=== PATIENT | male | born 1970 | race Caucasian/White ===

== ENCOUNTER 2021-02-17 19:36 | Emergency (ER) | payer OTHER ==
[2021-02-17 19:57] VITALS: BP 112/72; PULSE 85; TEMP 98.5; BMI 41.8
[2021-02-17] MEDS ORDERED: LIDOCAINE HCL 1%, 10 MG/ML (20ML VIAL) ONE (21:07)
== END 2021-02-17 22:18 | disposition home or self-care (01) ==
LOC: JERFT 19:36
PROC: 0HQCXZZ Repair Left Upper Arm Skin, External Approach (ICD-10-PCS; principal; 2021-02-17)
DX: S51.812A Laceration without foreign body of left forearm, initial encounter (principal)
CPT/HCPCS: 73060-TC-LT-FY; 73090-TC-LT-FY; 99284-25

== ENCOUNTER 2021-02-25 13:40 | Emergency (ER) | payer OTHER ==
[2021-02-25 14:04] VITALS: BP 116/74; PULSE 99; TEMP 97.4; BMI 34.2
== END 2021-02-25 14:33 | disposition home or self-care (01) ==
LOC: JERFT 13:40
DX: Z48.02 Encounter for removal of sutures (principal)
CPT/HCPCS: 99281-25